=== PATIENT | male | born 1960 | race Caucasian/White ===

== ENCOUNTER 2020-08-02 09:20 | Inpatient (IN) | payer SELFPAY ==
[2020-08-02 12:48] LABS: Absolute Lymphocytes (CBC) 3.9 K/uL (0.7-4.9); Basophils % 0.9 % (0-1.3); Hematocrit 53.3 % (39.6-49.0); MPV 9.6 fL (7.6-11.3); RBC Red Blood Cell Count 6.12 M/uL (4.33-5.43)
[2020-08-02 12:49] LABS: Protime INR 0.95
[2020-08-02 13:02] LABS: ALT/SGPT 19 U/L (12-78); AST/SGOT 10 U/L (15-37); Albumin 3.7 g/dL (3.4-5.0); Alkaline Phosphatase 67 U/L (45-117); BUN Blood Urea Nitrogen 13 mg/dL (7-18); Bicarbonate 28 mmol/L (21-32); Bilirubin Direct 0.1 mg/dL (0-0.2); Bilirubin Total 0.7 mg/dL (0.2-1.0); Glucose Level 102 mg/dL (74-106); Lipase 92 U/L (73-393); Magnesium 2.6 mg/dL (1.8-2.4); NT PRO-BNP 80 pg/mL (<125); Potassium 4.2 mmol/L (3.5-5.1); Protein, Total 7.5 g/dL (6.4-8.2); Sodium Level 140 mmol/L (136-145); Troponin (Emerg Dept Use Only) < 0.02 ng/mL (0.0-0.045)
[2020-08-02] MEDS ORDERED: NA CHLORIDE 0.9% 1,000 ML ONE ×2 (13:02→15:47)
[2020-08-02] MEDS ORDERED: FAMOTIDINE 20 MG/2 ML VIAL IV ONE (13:02)
[2020-08-02 13:13] LABS: Urine Blood NEGATIVE (NEG); Urine Glucose NEGATIVE (NEG); Urine Protein 2+ (NEG); Urine Specific Gravity >1.030 (1.005-1.030)
--- NOTE | 2020-08-02 13:33 | RAD REPORT ---
EXAM DESCRIPTION: RAD - Chest Single View - 08/02/2020 1:08 pm CLINICAL HISTORY: COUGH COMPARISON: None TECHNIQUE: AP portable chest image was obtained 08/02/2020 1:08 pm . FINDINGS: Lungs are clear. Heart and vasculature are normal. Trachea is midline. No foreign body andre ntified. No measurable pleural effusion and no pneumothorax. No acute bony abnormality seen. No acute aortic findings suspected. IMPRESSION: No acute cardiopulmonary process.
[2020-08-02] MEDS ORDERED: ONDANSETRON 4 MG/2 ML VIAL ONE (13:43)
[2020-08-02] MEDS ORDERED: MORPHINE 4 MG/ML SYR ONE ×2 (13:43→17:11)
--- NOTE | 2020-08-02 13:58 | RAD REPORT ---
EXAM DESCRIPTION: CT - Abdomen Pelvis W Contrast - 08/02/2020 1:39 pm CLINICAL HISTORY: Abdominal pain COMPARISON: none. TECHNIQUE: Computed axial tomography of the abdomen pelvis was obtained. 100 cc Isovue-300 was admin istered intravenously. Oral contrast was not requested which limits evaluation of bowel. All CT scans are performed using dose optimization technique as appropriate and may include automated exposure control or mA/KV adjustment according to patient size. FINDINGS: The liver, spleen, pancreas, adrenal and kidneys appear unremarkable. There is no evidence of diverticulitis. The wall of the distal stomach appears thickened. Several loops of jejunum are mildly dilated with thickened wall. Small amount of ascites. The ileum i s normal caliber. No free air. The wall of bladder appears thickened. Small bilateral inguinal hernias. Tiny umbilical hernia IMPRESSION: Wall of the distal esophagus appears thickened. This could be secondary to pathology suc h as inflammation, mass or incomplete distention Mild dilatation of several jejunal loops with thickened wall may indicate inflammation. An associated partial small bowel obstruction although possible is considered less likely and can be monitored on subsequent imaging. Small amount of ascites Thickened bladder wall may indicate inflammation
[2020-08-02] MEDS ORDERED: PANTOPRAZOLE 40 MG INJ ONE (15:47)
[2020-08-02] MEDS ORDERED: PIPER/TAZO/NS 3.375gm 3.375 GM/100 ML BAG ONE (15:48)
--- NOTE | 2020-08-02 15:48 | EDPHYS ---
Physician Documentation [facility] Name: Sathish Klein Age: 60 yrs Sex: Male : 1960 Arrival Date: 08/02/2020 Time: 09:24 Bed 25 Private MD: David Perdomo HPI: 08/02 15:11 This 60 yrs old Male presents to ER via Ambulatory with complaints of vira Abdominal Pain, Difficulty Swallowing. 15:11 The patient presents with dysphagia, of solids, of liquids, of both solids and liquids. vira The patient describes throat pain as intermittent. Onset: The symptoms/episode began/occurred 4 week(s) ago. Severity of symptoms: At their worst the symptoms were mild, moderate. Historical: - Allergies: :58 No Known Allergies; ss - Home Meds: :58 None [Active]; ss - PMHx: :58 None; ss - PSHx: :58 None; ss - Immunization history:: Adult Immunizations unknown. - Social history:: Smoking status: Patient denies any tobacco usage or history of. ROS: 15:14 Constitutional: Negative for fever, chills, and weight loss, Eyes: Negative for injury, vira pain, redness, and discharge, ENT: Negative for injury, pain, and discharge, Neck: Negative for injury, pain, and swelling, Cardiovascular: Negative for chest pain, palpitations, and edema. 15:31 Respiratory: Negative for shortness of breath, cough, wheezing, and pleuritic chest vira pain, MS/Extremity: Negative for injury and deformity, Skin: Negative for injury, rash, and discoloration, Neuro: Negative for headache, weakness, numbness, tingling, and seizure, Psych: Negative for depression, anxiety, suicide ideation, homicidal ideation, and hallucinations, Allergy/Immunology: Negative for hives, rash, and allergies, Endocrine: Negative for neck swelling, polydipsia, polyuria, polyphagia, and marked weight changes, Hematologic/Lymphatic: Negative for swollen nodes, abnormal bleeding, and unusual bruising. 15:31 Abdomen/GI: Positive for abdominal pain, nausea, diarrhea, abdominal cramps, abdominal distension, of the right upper quadrant, left upper quadrant, right lower quadrant and left lower quadrant. 15:31 : Positive for urinary symptoms, pelvic pain, difficulty urinating, of the suprapubic area. Exam: 15:31 Constitutional: This is a well developed, well nourished patient who is awake, alert, vira and in no acute distress. Head/Face: Normocephalic, atraumatic. Eyes: Pupils equal round and reactive to light, extra-ocular motions intact. Lids and lashes normal. Conjunctiva and sclera are non-icteric and not injected. Cornea within normal limits. Periorbital areas with no swelling, redness, or edema. ENT: Nares patent. No nasal discharge, no septal abnormalities noted. Tympanic membranes are normal and external auditory canals are clear. Oropharynx with no redness, swelling, or masses, exudates, or evidence of obstruction, uvula midline. Mucous membranes moist. Neck: Trachea midline, no thyromegaly or masses palpated, and no cervical lymphadenopathy. Supple, full range of motion without nuchal rigidity, or vertebral point tenderness. No Meningismus. Chest/axilla: Normal chest wall appearance and motion. Nontender with no deformity. No lesions are appreciated. Cardiovascular: Regular rate and rhythm with a normal S1 and S2. No gallops, murmurs, or rubs. Normal PMI, no JVD. No pulse deficits. Respiratory: Lungs have equal breath sounds bilaterally, clear to auscultation and percussion. No rales, rhonchi or wheezes noted. No increased work of breathing, no retractions or nasal flaring. Back: No spinal tenderness. No costovertebral tenderness. Full range of motion. Male : Normal genitalia with no discharge or lesions. Skin: Warm, dry with normal turgor. Normal color with no rashes, no lesions, and no evidence of cellulitis. MS/ Extremity: Pulses equal, no cyanosis. Neurovascular intact. Full, normal range of motion. Neuro: Awake and alert, GCS 15, oriented to person, place, time, and situation. Cranial nerves II-XII grossly intact. Motor strength 5/5 in all extremities. Sensory grossly intact. Cerebellar exam normal. Normal gait. Psych: Awake, alert, with orientation to person, place and time. Behavior, mood, and affect are within normal limits. 15:31 Abdomen/GI: Inspection: distension, Bowel sounds: hyperactive, Palpation: mild abdominal tenderness, in all quadrants, Liver: no appreciated palpable abnormalities, Hernia: not appreciated. 15:31 Musculoskeletal/extremity: DVT Exam: No signs of deep vein thrombosis. no pain, no swelling, no tenderness, negative Homans' sign noted on exam, no appreciated bluish discoloration, no erythema, no increased warmth. Vital Signs: 09:56 BP 134 / 85; Pulse 60; Resp 16; Temp 98.4(TE); Pulse Ox 98% on R/A; Weight 83.91 kg; ss Height 5 ft. 10 in. (177.80 cm); Pain 9/10; 12:10 BP 151 / 91; Pulse 62; Resp 18; Pulse Ox 98% on R/A; vg1 13:00 BP 119 / 83; Pulse 60; Resp 14; Pulse Ox 98% on R/A; vg1 14:00 BP 128 / 84; Pulse 57; Resp 16; Pulse Ox 97% on R/A; vg1 15:00 BP 169 / 90; Pulse 60; Resp 22; Pulse Ox 98% on R/A; vg1 16:00 BP 153 / 86; Pulse 55; Resp 18; Pulse Ox 99% on R/A; vg1 17:00 BP 147 / 87; Pulse 57; Resp 18; Pulse Ox 100% on R/A; vg1 09:56 Body Mass Index 26.54 (83.91 kg, 177.80 cm) ss MDM: 11:45 Patient medically screened. vira 15:43 Differential diagnosis: gastroesophageal reflux disease, bowel obstruction, vira cholecystitis, Cholelithiasis, gastritis, GI Bleed, Irritable bowel syndrome, non-specific abd pain, pancreatitis, Peritonitis, Prostatitis, urinary tract infection. Data reviewed: vital signs, nurses notes, lab test result(s), EKG, radiologic studies, CT scan, plain films. Data interpreted: brand protection manager: rate is 60 beats/min, rhythm is regular, Pulse oximetry: on room air is 98 %. Test interpretation: by ED physician or midlevel provider: ECG, plain radiologic studies. Counseling: I had a detailed discussion with the patient and/or guardian regarding: the historical points, exam findings, and any diagnostic results supporting the discharge/admit diagnosis, the presence of at least one elevated blood pressure reading (>120/80) during this emergency department visit, lab results, radiology results, the need for further work-up and treatment in [facility]. 08/02 12:31 Order name: Basic Metabolic Panel [facility] 08/02 12:31 Order name: CBC with Diff [facility] 08/02 12:31 Order name: LFT's [facility] 08/02 12:31 Order name: Magnesium; Complete Time: 13:25 [facility] 08/02 12:31 Order name: NT PRO-BNP; Complete Time: 13:25 [facility] 08/02 12:31 Order name: PT-INR; Complete Time: 13:25 [facility] 08/02 12:31 Order name: Troponin (emerg Dept Use Only); Complete Time: 13:25 [facility] 08/02 12:32 Order name: Lipase; Complete Time: 13:25 [facility] 08/02 12:32 Order name: Urine Culture [facility] 08/02 12:32 Order name: Basic Metabolic Panel; Complete Time: 13:25 [facility] 08/02 12:32 Order name: CBC with Automated Diff; Complete Time: 13:25 [facility] 08/02 12:32 Order name: Liver (Hepatic) Function; Complete Time: 13:25 [facility] 08/02 13:11 Order name: Urine Dipstick--Ancillary (enter results) 08/02 13:12 Order name: Urine Dipstick-Ancillary; Complete Time: 13:25 [facility] 08/02 12:31 Order name: XRAY Chest (1 view); Complete Time: 14:50 [facility] 08/02 12:32 Order name: CT Abd/Pelvis - IV Contrast Only; Complete Time: 14:50 [facility] 08/02 16:09 Order name: Comprehensive Metabolic Panel [facility] 08/02 16:09 Order name: CBC with Automated Diff [facility] 08/02 16:09 Order name: CBC with Automated Diff [facility] 08/02 16:09 Order name: Comprehensive Metabolic Panel [facility] 08/02 16:10 Order name: Protime (+INR) [facility] 08/02 16:10 Order name: Protime (+INR) [facility] 08/02 16:10 Order name: PTT, Activated Partial Thromb [facility] 08/02 16:10 Order name: PTT, Activated Partial Thromb [facility] 08/03 03:34 Order name: SARS-COV-2 RT PCR [facility] 08/02 12:31 Order name: EKG; Complete Time: 12:33 [facility] 08/02 12:31 Order name: Cardiac monitoring; Complete Time: 12:37 [facility] 08/02 12:32 Order name: EKG - Nurse/Tech; Complete Time: 12:59 [facility] 08/02 12:32 Order name: IV Saline Lock; Complete Time: 12:37 [facility] 08/02 12:32 Order name: Labs collected and sent; Complete Time: 12:37 [facility] 08/02 12:32 Order name: O2 Per Protocol; Complete Time: 12:43 [facility] 08/02 12:32 Order name: O2 Sat Monitoring; Complete Time: 12:43 [facility] 08/02 12:32 Order name: Urine Dipstick-Ancillary (obtain specimen); Complete Time: 13:05 [facility] 08/02 16:09 Order name: CONS Pharmacy Consult [facility] 08/02 16:09 Order name: CONS Physician Consult [facility] 08/02 16:09 Order name: NPO [facility] 08/02 16:11 Order name: CONS Physician Consult [facility] Administered Medications: Discontinued: NS 0.9% 1000 ml IV at 125 ml/hr continuous 12:52 Drug: Pepcid 20 mg Route: IVP; Site: left antecubital; vg1 13:37 Follow up: Response: No adverse reaction vg1 12:52 Drug: NS 0.9% 1000 ml Route: IV; Rate: 125 ml/hr; Site: left antecubital; vg1 13:30 Drug: morphine 4 mg {Note: rass1.} Route: IVP; Site: left antecubital; vg1 14:00 Follow up: Response: No adverse reaction; Pain is decreased vg1 13:30 Drug: Zofran (Ondansetron) 4 mg Route: IVP; Site: left antecubital; vg1 15:18 Follow up: Response: No adverse reaction vg1 16:01 Drug: NS 0.9% 1000 ml Route: IV; Rate: 1 bolus; Site: left antecubital; vg1 17:11 Follow up: IV Status: Completed infusion; IV Intake: 1000ml vg1 16:02 Drug: ProTONIX 40 mg Route: IVP; Site: left antecubital; vg1 17:11 Follow up: Response: No adverse reaction vg1 16:02 Drug: Zosyn 3.375 grams Route: IVPB; Infused Over: 60 mins; Site: left antecubital; vg1 17:10 Follow up: IV Status: Completed infusion vg1 17:10 Drug: morphine 4 mg {Note: rass1.} Route: IVP; Site: left antecubital; vg1 17:10 Drug: Zofran (Ondansetron) 4 mg Route: IVP; Site: left antecubital; vg1 17:13 Drug: Thiamine 100 mg Route: IV; Rate: bolus; Site: left antecubital; vg1 17:13 Drug: Banana Bag - (NS 0.9% 1000 ml, foLIC Acid 1 mg, Thiamine 100 mg, Multivitamin 1 vg1 amp) Route: IV; Rate: 125 ml/hr; Site: left antecubital; Disposition: 08/02/20 15:47 Hospitalization ordered by Bro Torres for Inpatient Admission. Preliminary diagnosis are Alcohol abuse, Major depressive disorder, recurrent - recent sons , accidental, Esophagitis, Ascites, Other intestinal obstruction - partial small bowel, Cystitis. - Bed requested for [facility] ER HOLD. - Status is Inpatient Admission. iw - Condition is Fair. - Problem is new. - Symptoms have improved. Signatures: Dispatcher [employer] EDMS Natasha Huerta Corey, MD MD cha Williams, Irene, RN RN iw Smirch, Shelby, RN RN ss Garcia, Victoria, RN RN vg1 Corrections: (The following items were deleted from the chart) 15:23 15:10 Bladder Irrigation ordered. [facility] 18:34 15:47 Hospitalization Ordered by Bro Torres MD for Inpatient Admission. Preliminary bd diagnosis is Alcohol abuse; Major depressive disorder, recurrent - recent sons , accidental; Esophagitis; Ascites; Other intestinal obstruction - partial small bowel; Cystitis. Bed requested for Telemetry/MedSurg (Inpatient). Status is Inpatient Admission. Condition is Fair. Problem is new. Symptoms have improved. [facility] 08/03 12:47 08/02 18:34 08/02/2020 15:47 Hospitalization Ordered by Bro Torres MD for Inpatient iw Admission. Preliminary diagnosis is Alcohol abuse; Major depressive disorder, recurrent - recent sons , accidental; Esophagitis; Ascites; Other intestinal obstruction - partial small bowel; Cystitis. Bed requested for [facility] ER HOLD. Status is Inpatient Admission. Condition is Fair. Problem is new. Symptoms have improved. bd
--- NOTE | 2020-08-02 15:48 | ER ---
Nurse's Notes [facility] Name: Sathish Klein Age: 60 yrs Sex: Male : 1960 Arrival Date: 08/02/2020 Time: 09:24 Bed 25 Private MD: Diagnosis: Alcohol abuse;Major depressive disorder, recurrent-recent sons , accidental;Esophagitis;Ascites;Other intestinal obstruction-partial small bowel;Cystitis Presentation: 08/02 09:56 Chief complaint: Patient states: "I've been having a hard time swallowing, especially ss during meals." Pt also c/o stabbing abd pain. Coronavirus screen: Client denies travel out of the [place] in the last 14 days. Ebola Screen: Patient denies exposure to infectious person. Patient denies travel to an Ebola-affected area in the 21 days before illness onset. Initial Sepsis Screen: Does the patient meet any 2 criteria? No. Patient's initial sepsis screen is negative. Does the patient have a suspected source of infection? No. Patient's initial sepsis screen is negative. Risk Assessment: Do you want to hurt yourself or someone else? Patient reports no desire to harm self or others. Onset of symptoms was July 30, 2020. 09:56 Method Of Arrival: Ambulatory ss 09:56 Acuity: CARLOS A 3 ss Historical: - Allergies: 09:58 No Known Allergies; ss - Home Meds: 09:58 None [Active]; ss - PMHx: 09:58 None; ss - PSHx: 09:58 None; ss - Immunization history:: Adult Immunizations unknown. - Social history:: Smoking status: Patient denies any tobacco usage or history of. Screenin:10 Abuse screen: Denies threats or abuse. Nutritional screening: No deficits noted. vg1 Tuberculosis screening: No symptoms or risk factors identified. Fall Risk No fall in past 12 months (0 pts). No secondary diagnosis (0 pts). IV access (20 points). Ambulatory Aid- None/Bed Rest/Nurse Assist (0 pts). Gait- Normal/Bed Rest/Wheelchair (0 pts) Mental Status- Oriented to own ability (0 pts). Total Mckenna Fall Scale indicates No Risk (0-24 pts). Assessment: 12:05 General: Appears in no apparent distress. comfortable, Behavior is calm, cooperative. vg1 Pain: Complains of pain in ABD Pain currently is 9 out of 10 on a pain scale. Pain began about 4 days ago. Neuro: Level of Consciousness is awake, alert, obeys commands, Oriented to person, place, time, situation. Cardiovascular: Patient's skin is warm and dry. Respiratory: Airway is patent Respiratory effort is even, unlabored. GI: Bowel sounds present X 4 quads. Abd is soft and non tender X 4 quads. Reports bloating, diarrhea, flatulence, gaseousness, Patient currently denies nausea, vomiting. : No signs and/or symptoms were reported regarding the genitourinary system. EENT: Reports difficulty swallowing for years; it comes and goes. Derm: Skin is intact, is healthy with good turgor. Musculoskeletal: Circulation, motion, and sensation intact. 13:11 Reassessment: Patient appears in no apparent distress at this time. No changes from vg1 previously documented assessment. Patient and/or family updated on plan of care and expected duration. Pain level reassessed. Patient is alert, oriented x 3, equal unlabored respirations, skin warm/dry/pink. 13:23 Reassessment: Patient states ABD pain is getting worse. States pain is in the vg1 Epigastric area and radiates to groin; patient is grimacing, moaning and guarding ABD. Provider notifed. 15:06 Reassessment: Patient appears in no apparent distress at this time. Patient and/or vg1 family updated on plan of care and expected duration. Pain level reassessed. Patient is alert, oriented x 3, equal unlabored respirations, skin warm/dry/pink. But states can feel the pain coming back, but is ok for now. Patient states feeling better. 16:55 Reassessment: Patient and/or family updated on plan of care and expected duration. Pain vg1 level reassessed. Patient is alert, oriented x 3, equal unlabored respirations, skin warm/dry/pink. Patient stated pain 10/10. Provider notified. Vital Signs: 09:56 BP 134 / 85; Pulse 60; Resp 16; Temp 98.4(TE); Pulse Ox 98% on R/A; Weight 83.91 kg; ss Height 5 ft. 10 in. (177.80 cm); Pain 9/10; 12:10 BP 151 / 91; Pulse 62; Resp 18; Pulse Ox 98% on R/A; vg1 13:00 BP 119 / 83; Pulse 60; Resp 14; Pulse Ox 98% on R/A; vg1 14:00 BP 128 / 84; Pulse 57; Resp 16; Pulse Ox 97% on R/A; vg1 15:00 BP 169 / 90; Pulse 60; Resp 22; Pulse Ox 98% on R/A; vg1 16:00 BP 153 / 86; Pulse 55; Resp 18; Pulse Ox 99% on R/A; vg1 17:00 BP 147 / 87; Pulse 57; Resp 18; Pulse Ox 100% on R/A; vg1 09:56 Body Mass Index 26.54 (83.91 kg, 177.80 cm) ED Course: 09:24 Patient arrived in ED. ds1 09:57 Triage completed. 09:58 Arm band placed on right wrist. 11:45 David Pantoja MD is Attending Physician. [facility] 11:50 Inserted saline lock: 20 gauge in left antecubital area, using aseptic technique. Blood dh3 collected. 12:01 Joelle Dent, RN is Primary Nurse. vg1 12:10 Patient has correct armband on for positive identification. Bed in low position. Call vg1 light in reach. 13:08 XRAY Chest (1 view) In Process Unspecified. EDMS 13:[address] via stretcher. vg1 13:38 CT completed. Patient tolerated procedure well. Patient moved back from CT. 13:39 CT Abd/Pelvis - IV Contrast Only In Process Unspecified. EDMS 15:44 Bro Torres MD is Hospitalizing Provider. [facility] 23:53 Primary Nurse role handed off by Joelle Dent, JUN 23:53 Bryan Smith, RN is Primary Nurse. 08/03 12:47 Lin Jiang, RN is Primary Nurse. iw Administered Medications: Discontinued: NS 0.9% 1000 ml IV at 125 ml/hr continuous 08/02 12:52 Drug: Pepcid 20 mg Route: IVP; Site: left antecubital; vg1 13:37 Follow up: Response: No adverse reaction vg1 12:52 Drug: NS 0.9% 1000 ml Route: IV; Rate: 125 ml/hr; Site: left antecubital; vg1 13:30 Drug: morphine 4 mg {Note: rass1.} Route: IVP; Site: left antecubital; vg1 14:00 Follow up: Response: No adverse reaction; Pain is decreased vg1 13:30 Drug: Zofran (Ondansetron) 4 mg Route: IVP; Site: left antecubital; vg1 15:18 Follow up: Response: No adverse reaction vg1 16:01 Drug: NS 0.9% 1000 ml Route: IV; Rate: 1 bolus; Site: left antecubital; vg1 17:11 Follow up: IV Status: Completed infusion; IV Intake: 1000ml vg1 16:02 Drug: ProTONIX 40 mg Route: IVP; Site: left antecubital; vg1 17:11 Follow up: Response: No adverse reaction vg1 16:02 Drug: Zosyn 3.375 grams Route: IVPB; Infused Over: 60 mins; Site: left antecubital; vg1 17:10 Follow up: IV Status: Completed infusion vg1 17:10 Drug: morphine 4 mg {Note: rass1.} Route: IVP; Site: left antecubital; vg1 17:10 Drug: Zofran (Ondansetron) 4 mg Route: IVP; Site: left antecubital; vg1 17:13 Drug: Thiamine 100 mg Route: IV; Rate: bolus; Site: left antecubital; vg1 17:13 Drug: Banana Bag - (NS 0.9% 1000 ml, foLIC Acid 1 mg, Thiamine 100 mg, Multivitamin 1 vg1 amp) Route: IV; Rate: 125 ml/hr; Site: left antecubital; Intake: 17:11 IV: 1000ml; Total: 1000ml. vg1 Outcome: 15:47 Decision to Hospitalize by Provider. [facility] 08/03 12:47 Patient left the ED. iw Signatures: Dispatcher [employer] EDMS Bryan Smith RN RN sg Anderson, Corey, MD MD cha Sanford, Demi ds1 Lin Jiang RN RN iw Smirch, Shelby, RN RN ss Warren, Shannon sw Herrera, Deanna 3 Joelle Dent RN RN vg1 Corrections: (The following items were deleted from the chart) 08/02 13:18 13:11 Reassessment: Patient appears in no apparent distress at this time. Patient vg1 and/or family updated on plan of care and expected duration. Pain level reassessed. Patient is alert, oriented x 3, equal unlabored respirations, skin warm/dry/pink. vg1 13:32 13:23 Reassessment: Patient states ABD pain is getting worse. States pain is in the vg1 Epigastric area and radiates to groin. Provider notifed vg1
[2020-08-02] MEDS ORDERED: FOLIC ACID 1 MG, MULTIVITAMINS INJ 10 ML in NA CHLORIDE 0.9% 1,000 ML IV ONE (16:00)
[2020-08-02] MEDS ORDERED: ACETAMINOPHEN 500 MG TAB PO PRN (16:07)
[2020-08-02] MEDS ORDERED: MORPHINE 2 MG/ML SYR IV PRN (16:07)
[2020-08-02] MEDS ORDERED: ONDANSETRON 4 MG/2 ML VIAL IV PRN (16:07)
[2020-08-02] MEDS: NA CHLORIDE 0.9% 1,000 ML IV SCH (17:00)
[2020-08-02] MEDS ORDERED: THIAMINE 200 MG/2 ML INJ ONE (17:00)
[2020-08-02 20:12] VITALS: BMI 26.5
[2020-08-02] MEDS: chlordiazePOXIDE HCl 25 MG CAP PO SCH (20:30)
[2020-08-02] MEDS ORDERED: chlordiazePOXIDE HCl 25 MG CAP ONE (20:46)
[2020-08-03] MEDS ORDERED: PIPER/TAZO/NS 3.375gm 3.375 GM/100 ML BAG IVPB SCH
[2020-08-03] MEDS: NA CHLORIDE 0.9% 1,000 ML IV SCH (03:00)
[2020-08-03] MEDS: chlordiazePOXIDE HCl 25 MG CAP PO SCH (04:26)
[2020-08-03] MEDS ORDERED: PIPER/TAZO/NS 3.375gm 3.375 GM/100 ML BAG ONE (05:08)
[2020-08-03] MEDS ORDERED: NA CHLORIDE 0.9% 1,000 ML ONE (05:08)
[2020-08-03] MEDS ORDERED: chlordiazePOXIDE HCl 25 MG CAP ONE ×2 (05:08→08:28)
[2020-08-03 05:46] LABS: Albumin 3.1 g/dL (3.4-5.0); Bilirubin Total 0.8 mg/dL (0.2-1.0); Protein, Total 6.4 g/dL (6.4-8.2)
[2020-08-03 05:51] LABS: Hematocrit 46.4 % (39.6-49.0); RBC Red Blood Cell Count 5.32 M/uL (4.33-5.43)
[2020-08-03 05:52] LABS: Absolute Lymphocytes (CBC) 3.2 K/uL (0.7-4.9); Basophils % 0.5 % (0-1.3); Lymphocytes % 26.1 % (15.3-44.8)
[2020-08-03 06:18] LABS: Protime INR 0.97
--- NOTE | 2020-08-03 06:29 | EKG ---
Test Date: 2020-08-02 Test Time: 12:56:42 Sales Teacher: JEFFERSON MEASUREMENT RESULTS: Intervals: Rate: 52 TX: 142 QRSD: 78 QT: 416 QTc: 386 [place]: P: 53 TX: 142 QRS: 67 T: 61 INTERPRETIVE STATEMENTS: Sinus bradycardia Junctional ST depression, probably normal Borderline ECG Compared to ECG 12/29/2009 19:14:20 ST (T wave) deviation now present Sinus rhythm no longer present Electronically Signed On 08-03-20 06:27:12 BLOCK[employer] SKIVER by Leon Arrington
[2020-08-03 08:51] VITALS: BP 126/89; TEMP 98.4
[2020-08-03] MEDS ORDERED: PNEUMOCOCCAL VACCINE 0.5 ML IMVAC ONE (09:00)
[2020-08-03] MEDS ORDERED: INFLUENZA VACCINE (for 3y+) 0.5 ML DOSE IMVAC ONE (09:00)
--- NOTE | 2020-08-03 10:38 | CON ---
Date of Consultation: 08/03/2020 History Of Present Illness: This is the case of a 60-year-old patient, comes to the hospital with ga stritis, esophagitis, duodenitis. He has pain for the last 5 days. He remembers having esophagitis in the past and thickening in the area diagnose and he slowed down on his drinking, but a few months ago, his son in an accident and he says that his drinking habit is getting a lot worse. He has some pain on and off. He has been dealing with this for few months, but in the last 6 days, it got w orse. In the last 6 days, he say 6 days ago he has a large amount of alcohol consumption. He unders tand that he should not do it, but he has been through a lot of stress and he just could not control it and then few days later, he developed this and that is why he is here right now. Also, a few week s ago, he was employed at work and then once again, he used a lot of alcohol consumption plus the t was not the greatest. He has seen a GI doctor before, although they advised in the past so what to do, he says that in the last few weeks, his situation has changed emotionally and it is taking a tur n for the worse. He denies any emesis, any hematochezia, melena, any recent traveling out of the formerly [facility]. He does not remember his last colonoscopy. Past Medical History: Include esophagitis. Medications: None. Allergies: NONE. Surgeries: None. Social History: Drinking, see above. He does not smoke. Review of Systems: Ten points otherwise unremarkable other than the abdominal pain, some nausea and abdominal distention on and off. He has history of also dysuria in the past. He was diagnosed with UTI. Physical Examination: General: The patient is awake, alert. HEENT: Pupils are equal and reactive, anicteric. Neck: Supple. Chest: Clear. Abdomen: Softly distended. No guarding or rebound. No peritoneal signs. Mild generalized tenderne ss. Extremities: Good capillary refill. Rectal: Deferred. Diagnostic Data: CAT scan of the abdomen and pelvis interpreted by Dr. Rea as urinary bladder t hickening; small bilateral inguinal hernias; umbilical hernia; several loops of jejunum, mildly thick ened; distal stomach thickened and distal esophagus thickened. That is per Dr. Rea. Blood work shows WBC count of 12, hemoglobin of 15.5. INR is 0.97. Alkaline phosphate 57. Assessment: A 60-year-old patient with esophagitis, gastritis, duodenitis, cystitis. He admitted in the last 5 days, he has an alcohol binge problem for some personal reasons. At least from a surgica l standpoint, right now, we did not see any perforation, but we counseled him the importance of looki ng help for his alcohol cessation since this thickening if does not cause any perforation or ulcers o r bleeding may still cause some chronic changes, chronic problems that may include even cancer from i rritation. He needs a brain wave technician to diagnose his properly and trying to find the specific ca use of this inflammation. From the surgical standpoint, we going to keep observation on the patient and we will follow the patient with you and give more recommendations as the case develops. ALEXA/SWAPNIL Voice ID: [id number] Report ID: [id number]
[2020-08-03 13:26] VITALS: O2SAT 100
--- NOTE | 2020-08-09 23:33 | P.HP ---
Certification for Inpatient Patient admitted to: Inpatient With expected LOS: >2 Midnights Patient will require the following post-hospital care: None Practitioner: I am a practitioner with admitting privileges, knowledge of patient current condition, hospital course, and medical plan of care. Services: Services provided to patient in accordance with Admission requirements found in Title 42 Section 412.3 of the Code of Federal Regulations Patient History Date of Service: 08/02/20 Reason for admission: Abdominal pain History of Present Illness: Patient is a 60-year-old gentleman who came into the hospital with abdominal discomfort. Patient has been drinking heavily. It was felt that patient may have pancreatitis. Patient had imaging studies performed which revealed Esophagitis, possible gastritis, and duodenitis. Patient's lipase is within normal limits. At this time, patient will be admitted to the hospital for further evaluation. Allergies No Known Allergies Allergy (Unverified 08/02/20 17:24) Home Medications: Cefdinir [Omnicef] 300 mg PO BID #14 capsule 08/03/20 Pantoprazole [Protonix Tab] 40 mg PO DAILY #30 tab 08/03/20 Sucralfate [Carafate -Tab] 1 gm PO ACHS #120 tab 08/03/20 - Past Medical/Surgical History Past Medical History: Patient denies medical history Past Surgical History: Patient denies surgical history - Family History Father Family History: Reviewed- Non-Contributory - Social History Smoking Status: Never smoker Alcohol use: Yes CD- Drugs: No Caffeine use: No Place of Residence: Home Review of Systems 10-point ROS is otherwise unremarkable Physical Examination - Vital Signs Temperature: 98.4 F Blood Pressure: 126/89 Pulse: 59 Respirations: 16 Pulse Ox (%): 97 - Physical Exam General: Alert, In no apparent distress, Oriented x3 HEENT: Atraumatic, PERRLA, Mucous membr. moist/pink, EOMI, Sclerae nonicteric Neck: Supple, 2+ carotid pulse no bruit, No LAD, Without JVD or thyroid abnormality Respiratory: Clear to auscultation bilaterally, Normal air movement Cardiovascular: Regular rate/rhythm, Normal S1 S2 Gastrointestinal: Normal bowel sounds, Soft and benign, Non-distended, Tenderness (Mild epigastric tenderness ) Musculoskeletal: No clubbing, No swelling, No tenderness Integumentary: No rashes Neurological: Normal gait, Normal speech, Normal strength at 5/5 x4 extr, Normal tone, Normal affect Lymphatics: No axilla or inguinal lymphadenopathy Assessment & Plan - Problems (Diagnosis) (1) Abdominal pain Status: Acute (2) Epigastric abdominal tenderness Status: Acute (3) Gastritis and duodenitis Status: Acute (4) Esophagitis Status: Acute (5) Alcohol abuse Status: Acute - Plan Plan: - Continue with IV hydration and PPI - Continue with IV antibiotics - Continue with pain control - NPO - GI and DVT prophylaxis Discharge Plan: Home Plan to discharge in: 24 Hours - Advance Directives Does patient have a Living Will: No Does patient have a Durable POA for Healthcare: No - Code Status/Comfort Care Code Status Assessed: Yes Code Status: Full Code Critical Care: No Time Spent Managing PTS Care (In Minutes): 45
--- NOTE | 2020-08-09 23:39 | P.DS ---
Discharge Date: 08/03/20 Disposition: ROUTINE DISCHARGE Discharge Condition: GOOD Reason for Admission: Abdominal pain - Problems (1) Abdominal pain Status: Acute (2) Epigastric abdominal tenderness Status: Acute (3) Gastritis and duodenitis Status: Acute (4) Esophagitis Status: Acute (5) Alcohol abuse Status: Acute Brief History of Present Illness: Patient is a 60-year-old gentleman who came into the hospital with abdominal discomfort. Patient has been drinking heavily. It was felt that patient may have pancreatitis. Patient had imaging studies performed which revealed Esophagitis, possible gastritis, and duodenitis. Patient's lipase is within normal limits. At this time, patient will be admitted to the hospital for further evaluation. Hospital Course: Patient is doing well today. We will continue with Protonix at discharge. Continue with antibiotic therapy. At this time, patient is stable for discharge home. Vital Signs/Physical Exam: Temp Pulse Resp BP Pulse Ox 98.4 F 59 16 126/89 97 08/09/20 23:35 08/09/20 23:35 08/09/20 23:35 08/09/20 23:35 08/09/20 23:35 General: Alert, In no apparent distress, Oriented x3 Laboratory Data at Discharge: WBC 12.20 K/uL (4.3-10.9) H D 08/03/20 05:00 Hgb 15.5 g/dL (13.6-17.9) 08/03/20 05:00 Hct 46.4 % (39.6-49.0) 08/03/20 05:00 Plt Count 274 K/uL (152-406) 08/03/20 05:00 PT 11.4 SECONDS (9.5-12.5) 08/03/20 05:00 INR 0.97 08/03/20 05:00 APTT 27.7 SECONDS (24.3-36.9) 08/03/20 05:00 Sodium 140 mmol/L (136-145) 08/03/20 05:00 Potassium 4.0 mmol/L (3.5-5.1) 08/03/20 05:00 BUN 9 mg/dL (7-18) 08/03/20 05:00 Creatinine 0.91 mg/dL (0.55-1.3) 08/03/20 05:00 Glucose 89 mg/dL (74-106) 08/03/20 05:00 Magnesium 2.6 mg/dL (1.8-2.4) H 08/02/20 11:50 Total Bilirubin 0.8 mg/dL (0.2-1.0) 08/03/20 05:00 AST 12 U/L (15-37) L 08/03/20 05:00 ALT 16 U/L (12-78) 08/03/20 05:00 Alkaline Phosphatase 57 U/L (45-117) 08/03/20 05:00 Lipase 92 U/L (73-393) 08/02/20 11:50 Home Medications: Cefdinir [Omnicef] 300 mg PO BID #14 capsule 08/03/20 Pantoprazole [Protonix Tab] 40 mg PO DAILY #30 tab 08/03/20 Sucralfate [Carafate -Tab] 1 gm PO ACHS #120 tab 08/03/20 New Medications: Sucralfate [Carafate -Tab] 1 gm PO ACHS #120 tab Cefdinir [Omnicef] 300 mg PO BID #14 capsule Pantoprazole [Protonix Tab] 40 mg PO DAILY #30 tab Physician Discharge Instructions: Diet:AHA Activity:Fall precautions PHYSICIAN'S DISCHARGE INSTRUCTIONS OK TO DC IV AND DC HOME FOLLOW-UP WITH PRIMARY CARE PROVIDER IN 1-2 WEEKS FOLLOW-UP WITH GI, DR. LOOMIS, IN 1-2 WEEKS, FOR DYSPHAGIA RETURN TO THE ER IF symptoms worsen CALL or TEXT DR. VOGT AT [phone] IF ANY QUESTIONS REGARDING HOSPITAL STAY PLEASE CALL THE FLOOR AT [phone] IF ANY MEDICATION OR NURSING QUESTIONS Diet: AHA Activity: Fall precautions Followup: NONE,NONE [Primary Care Provider] - Time spent managing pt's care (in minutes): 35
== END 2020-08-03 13:30 | disposition home or self-care (01) | DRG 392 ==
LOC: ER 09:20 → ERHOLD 16:07
PROVIDERS: ADMIT Hospitalist; ATTEND Hospitalist
DX: K20.90 Esophagitis, unspecified without bleeding (principal); K29.70 Gastritis, unspecified, without bleeding; K29.80 Duodenitis without bleeding; N30.90 Cystitis, unspecified without hematuria; Z20.822 Contact with and (suspected) exposure to COVID-19
CPT/HCPCS: 36415; 71045; 74177; 80048; 80053; 80076; 81003; 83690; 83735; 83880; 84484; 85025; 85610; 85730; 87086; 87088; 93005; 96365; 96375; 99284; C9113; J2405; J2543; J3411; J7030; Q9967; U0003

== ENCOUNTER 2024-04-30 02:42 | Emergency (ER) | payer SELFPAY ==
[2024-04-30] MEDS ORDERED: LIDOCAINE 1% 20 ML MDV ONE (03:04)
[2024-04-30] MEDS ORDERED: SMZ./TMP. 800/160 MG TABLET ONE (03:05)
[2024-04-30] MEDS ORDERED: IBUPROFEN 400 MG TAB ONE (03:05)
[2024-04-30] MEDS ORDERED: CEPHALEXIN 250 MG CAP ONE (03:05)
[2024-04-30] MEDS ORDERED: ONDANSETRON 4 MG (ODT) TAB ONE (03:06)
--- NOTE | 2024-04-30 05:08 | ER ---
Nurse's Notes [facility] Name: Sathish Klein Age: 64 yrs Sex: Male : 1960 Arrival Date: 04/30/2024 Time: 02:42 Bed 5 Private MD: Diagnosis: Right index finger paronychia Presentation: 04/30 02:56 Chief complaint: Patient states: I was working with metal on Saturday and I think I got a vc1 piece in my finger. Coronavirus screen: Client denies travel out of the [place] in the last 14 days. At this time, the client does not indicate any symptoms associated with coronavirus-19. Ebola Screen: Patient negative for fever greater than or equal to 101.5 degrees Fahrenheit, and additional compatible Ebola Virus Disease symptoms Patient denies exposure to infectious person. Patient denies travel to an Ebola-affected area in the 21 days before illness onset. No symptoms or risks identified at this time. Initial Sepsis Screen: Does the patient meet any 2 criteria? No. Patient's initial sepsis screen is negative. Does the patient have a suspected source of infection? No. Patient's initial sepsis screen is negative. Risk Assessment: Do you want to hurt yourself or someone else? Patient reports no desire to harm self or others. Onset of symptoms was April 27, 2024. 02:56 Method Of Arrival: Ambulatory vc1 02:56 Acuity: CARLOS A 4 vc1 Triage Assessment: 02:59 General: Appears in no apparent distress. comfortable, slender, well groomed, well vc1 developed, well nourished, Behavior is calm, cooperative, appropriate for age. Pain: Complains of pain in right index finger Pain does not radiate. Pain currently is 10 out of 10 on a pain scale. Quality of pain is described as throbbing, Pain began 2-3 days ago. Is continuous. EENT: No deficits noted. No signs and/or symptoms were reported regarding the EENT system. Neuro: Level of Consciousness is awake, alert, obeys commands, Oriented to person, place, time, situation, Appropriate for age. Cardiovascular: No deficits noted. Patient's skin is warm and dry. Respiratory: Airway is patent Respiratory effort is even, unlabored, Respiratory pattern is regular, symmetrical, Breath sounds are clear bilaterally. GI: No deficits noted. No signs and/or symptoms were reported involving the gastrointestinal system. : No deficits noted. No signs and/or symptoms were reported regarding the genitourinary system. Derm: Skin is intact, is healthy with good turgor, Skin is dry, Skin is normal, Wound noted right index finger. Musculoskeletal: Circulation, motion, and sensation intact. Range of motion: intact in all extremities, Swelling present in right index finger. Injury Description: possible foreign body. Historical: - Allergies: 02:58 No Known Allergies; vc1 - Home Meds: 02:58 None [Active]; vc1 - PMHx: 02:58 None; vc1 - PSHx: 02:58 None; vc1 - Immunization history:: Client reports receiving the 2nd dose of the Covid vaccine, Last tetanus immunization: < 5 years ago. - Infectious Disease History:: Denies. - Social history:: Smoking status: Patient denies any tobacco usage or history of. - Family history:: not pertinent. Screenin:58 [facility] ED Fall Risk Assessment (Adult) History of falling in the last 3 months, vc1 including since admission No falls in past 3 months (0 pts) Confusion or Disorientation No (0 pts) Intoxicated or Sedated No (0 pts) Impaired Gait No (0 pts) Mobility Assist Device Used No (0 pt) Altered Elimination No (0 pt) Score/Fall Risk Level 0 - 2 = Low Risk Oriented to surroundings, Maintained a safe environment, Educated pt \T\ family on fall prevention, incl call for assistance when getting out of bed. Abuse screen: Denies threats or abuse. Nutritional screening: No deficits noted. Tuberculosis screening: No symptoms or risk factors identified. Assessment: 03:00 General: Appears in no apparent distress. uncomfortable, Behavior is calm, cooperative. kj2 Pain: Complains of pain in right hand and right index finger Pain currently is 9 out of 10 on a pain scale. Neuro: Level of Consciousness is awake, alert. Cardiovascular: Patient's skin is warm and dry. Respiratory: Airway is patent Respiratory effort is even, unlabored. GI: No signs and/or symptoms were reported involving the gastrointestinal system. : No signs and/or symptoms were reported regarding the genitourinary system. 04:36 Reassessment: Patient appears in no apparent distress at this time. Patient and/or kj2 family updated on plan of care and expected duration. Pain level reassessed. Patient is alert, oriented x 3, equal unlabored respirations, skin warm/dry/pink. Vital Signs: 02:56 BP 158 / 68; Pulse 50; Resp 14; Temp 98.6; Pulse Ox 99% ; Weight 83.91 kg; Height 5 ft. vc1 11 in. ; Pain 10/10; 03:23 BP 151 / 82; Pulse 45; Resp 18; Pulse Ox 98% on R/A; kj2 04:36 BP 153 / 104; Pulse 50; Resp 18; Pulse Ox 97% on R/A; kj2 05:22 BP 165 / 86; Pulse 56; Resp 18; Temp 98; Pulse Ox 97% on R/A; kj2 02:56 Body Mass Index 25.80 (83.91 kg, 180.34 cm) vc1 02:56 Pain Scale: Adult vc1 ED Course: 02:45 Patient arrived in ED. jj6 02:52 Chris Almanzar MD is Attending Physician. sp4 02:54 Liberty Mckeon RN is Primary Nurse. kj2 02:58 Triage completed. vc1 02:58 Arm band placed on left wrist. vc1 02:58 Patient has correct armband on for positive identification. Bed in low position. Call vc1 light in reach. Pulse ox on. NIBP on. 03:01 Provided Education on: call light. vc1 05:19 No provider procedures requiring assistance completed. Assist provider with laceration kj2 repair Set up tray. Dressed with Kerlix, Patient tolerated well. 05:31 Patient did not have IV access during this emergency room visit. kj2 Administered Medications: 03:20 Drug: Trimethoprim-Sulfamethoxazole PO (160 mg-800 mg (DS) 1 tablet PO once Route: PO; kj2 05:11 Follow up: Response: No adverse reaction kj2 03:20 Drug: Cephalexin PO 500 mg PO once Route: PO; kj2 05:11 Follow up: Response: No adverse reaction kj2 03:20 Drug: Ondansetron PO 4 mg PO once Route: PO; kj2 05:10 Follow up: Response: No adverse reaction kj2 03:21 Drug: Ibuprofen PO 800 mg PO once Route: PO; kj2 03:45 Follow up: Response: No adverse reaction kj2 05:11 Drug: Lidocaine Infiltration (1 %) 20 ml 20 ml Infiltration once; to bedside Volume: 20 kj2 ml; Route: Infiltration; 05:17 Drug: traMADol PO 100 mg PO once Route: PO; kj2 05:18 Follow up: Response: No adverse reaction; Medication administered at discharge. kj2 Medication: 03:01 VIS not applicable for this client. vc1 Point of Care Testing: Blood Glucose: 05:13 Blood Glucose: 108 mg/dL; cp4 Ranges: Outcome: 05:08 Discharge ordered by . sky 05:19 Condition: stable kj2 05:19 Discharge instructions given to patient, Instructed on discharge instructions, follow up and referral plans. medication usage, Demonstrated understanding of instructions, follow-up care, medications, Prescriptions given X 4, 05:21 Discharged to home ambulatory, kj2 05:31 Patient left the ED. kj2 Signatures: Marisel Crisostomoj6 Ryann Baig RN RN vc1 Chris Almanzar MD MD sp4 Veronica Guadarrama cp4 Liberty Mckeon RN RN kj2 Corrections: (The following items were deleted from the chart) 05:31 05:19 IV discontinued, intact, bleeding controlled, No redness/swelling at site. kj2 Pressure dressing applied, kj2
--- NOTE | 2024-04-30 05:09 | EDPHYS ---
Physician Documentation [facility] Name: Sathish Klein Age: 64 yrs Sex: Male : 1960 Arrival Date: 04/30/2024 Time: 02:42 Bed 5 Private MD: ED Physician Chris Almanzar HPI: 04/30 05:02 This 64 yrs old Male presents to ER via Ambulatory with complaints of Finger sp4 Injury. 05:21 64 year old male presents with moderate to severe pain and swelling of the right index sp4 finger that is red tender and painful. . Historical: - Allergies: 02:58 No Known Allergies; vc1 - Home Meds: 02:58 None [Active]; vc1 - PMHx: 02:58 None; vc1 - PSHx: 02:58 None; vc1 - Immunization history:: Client reports receiving the 2nd dose of the Covid vaccine, Last tetanus immunization: < 5 years ago. - Infectious Disease History:: Denies. - Social history:: Smoking status: Patient denies any tobacco usage or history of. - Family history:: not pertinent. ROS: 05:21 Constitutional: Negative for fever, chills, and weight loss, Positive right index sp4 finger pain, swelling , tenderness, redness 05:21 All other systems are negative, Exam: 05:21 Constitutional: This is a well developed, well nourished patient who is awake, alert, sp4 and in no acute distress. Head/Face: Normocephalic, atraumatic. Eyes: Pupils equal round and reactive to light, extra-ocular motions intact. Lids and lashes normal. Conjunctiva and sclera are not injected. Cornea within normal limits. Periorbital areas with no swelling, redness, or edema. ENT: Nares patent. No nasal discharge, no septal abnormalities noted. Tympanic membranes are normal and external auditory canals are clear. Oropharynx with no redness, swelling, or masses, exudates, or evidence of obstruction, uvula midline. Mucous membranes moist. Neck: Trachea midline, no thyromegaly or masses palpated, and no cervical lymphadenopathy. Supple, full range of motion without nuchal rigidity, or vertebral point tenderness. Chest/axilla: Normal chest wall appearance and motion. Nontender with no deformity. No lesions are appreciated. Cardiovascular: Regular rate and rhythm with a normal S1 and S2. No gallops, murmurs, or rubs. Normal PMI, no JVD. No pulse deficits. Respiratory: Lungs have equal breath sounds bilaterally, clear to auscultation and percussion. No rales, rhonchi or wheezes noted. No increased work of breathing, no retractions or nasal flaring. Abdomen/GI: Soft, with normal bowel sounds. No distension or tympany. No guarding or rebound. No evidence of tenderness throughout. Back: No spinal tenderness. No costovertebral tenderness. Skin: Warm, dry with normal turgor. Normal color with no rashes, no lesions, and no evidence of cellulitis. MS/ Extremity: Pulses equal, no cyanosis. Neurovascular intact. Full, normal range of motion. Positive Right index finfer distal finger moderate paronychia . Neuro: Awake and alert, GCS 15, oriented to person, place, time, and situation. Cranial nerves II-XII grossly intact. Motor strength 5/5 in all extremities. Sensory grossly intact. Psych: Awake, alert, with orientation to person, place and time. Behavior, mood, and affect are within normal limits Vital Signs: 02:56 BP 158 / 68; Pulse 50; Resp 14; Temp 98.6; Pulse Ox 99% ; Weight 83.91 kg; Height 5 ft. vc1 11 in. ; Pain 10/10; 03:23 BP 151 / 82; Pulse 45; Resp 18; Pulse Ox 98% on R/A; kj2 04:36 BP 153 / 104; Pulse 50; Resp 18; Pulse Ox 97% on R/A; kj2 05:22 BP 165 / 86; Pulse 56; Resp 18; Temp 98; Pulse Ox 97% on R/A; kj2 02:56 Body Mass Index 25.80 (83.91 kg, 180.34 cm) vc1 02:56 Pain Scale: Adult vc1 Procedures: 05:02 I \T\ D: Incision and drainage was performed for an abscess of the right dorsal aspect of sp4 distal phalanx of right index finger and right index fingernail - Right index finger paronychia Prepped with Betadine, alcohol, Anesthetized with 6 ml's 1% Lidocaine. Digital block . Incised with #11 blade. Drained moderate amount purulent fluid. bloody fluid. Dressing: sterile 4x4 gauze, Kerlix the patient tolerated the procedure well, Successful Incision and Drainage . MDM: 02:56 Medical Screening Exam initiated sp4 06:33 ED course: XR HAND 3 OR MORE VIEWS RIGHT INDICATION: Pain COMPARISON: None TECHNIQUE: 2 sp4 views of the right hand FINDINGS: BONES: No acute fracture or malalignment. No suspicious sclerotic or lytic lesion. SOFT TISSUE: Unremarkable. OTHER: None. IMPRESSION: No acute bony abnormality. . 06:33 Differential diagnosis: extremity fracture, Finger puncture. Data reviewed: vital sp4 signs, nurses notes, lab test result(s). ED course: Patient states his last tetanus booster was in 2022.. 04/30 05:25 Order name: Glucose, Ancillary Testing; Complete Time: 06:34 EDMS 04/30 02:54 Order name: Dressing - Wound; Complete Time: 05:13 sp4 04/30 02:54 Order name: Gloves, Sterile; Complete Time: 05:13 sp4 04/30 02:54 Order name: Setup Suture Tray; Complete Time: 04:23 sp4 04/30 05:10 Order name: Accucheck Blood Glucose; Complete Time: 05:13 sp4 Administered Medications: 03:20 Drug: Trimethoprim-Sulfamethoxazole PO (160 mg-800 mg (DS) 1 tablet PO once Route: PO; kj2 05:11 Follow up: Response: No adverse reaction kj2 03:20 Drug: Cephalexin PO 500 mg PO once Route: PO; kj2 05:11 Follow up: Response: No adverse reaction kj2 03:20 Drug: Ondansetron PO 4 mg PO once Route: PO; kj2 05:10 Follow up: Response: No adverse reaction kj2 03:21 Drug: Ibuprofen PO 800 mg PO once Route: PO; kj2 03:45 Follow up: Response: No adverse reaction kj2 05:11 Drug: Lidocaine Infiltration (1 %) 20 ml 20 ml Infiltration once; to bedside Volume: 20 kj2 ml; Route: Infiltration; 05:17 Drug: traMADol PO 100 mg PO once Route: PO; kj2 05:18 Follow up: Response: No adverse reaction; Medication administered at discharge. kj2 Point of Care Testing: Blood Glucose: 05:13 Blood Glucose: 108 mg/dL; cp4 Ranges: Critical Glucose Levels:Adult <50 mg/dl or >400 mg/dl <40 mg/dl or >180 mg/dl Disposition Summary: 04/30/24 05:08 Discharge Ordered Notes: Location: Home sp4 Problem: new sp4 Symptoms: have improved sp4 Condition: Stable sp4 Diagnosis - Right index finger paronychia sp4 Followup: sp4 - With: Private Physician - When: 7 - 10 days - Reason: Recheck today's complaints Discharge Instructions: - Discharge Summary Sheet sp4 - Paronychia, [id number] sp4 Forms: - Patient Portal Instructions sp4 Prescriptions: - Cephalexin 500 mg Oral Capsule - take 1 capsule ORAL route every 12 hours for 10 days; 20 capsule; Refills: 0, sp4 Product Selection Permitted - Ibuprofen 800 mg Oral Tablet - take 1 tablet ORAL route every 8 hours As needed take with food; 30 tablet; sp4 Refills: 0, Product Selection Permitted - Tramadol 50 mg Oral tablet - take 1 tablet ORAL route every 8 hours as needed; 20 tablet; Refills: 0, sp4 Product Selection Permitted - Bactrim DS 800-160 mg Oral Tablet - take 1 tablet ORAL route every 12 hours for 10 days; 20 tablet; Refills: 0, sp4 Product Selection Permitted Signatures: Dispatcher [employer] Ryann Hu RN RN vc1 Chris Almanzar MD MD sp4 Liberty Mckeon RN RN kj2
[2024-04-30] MEDS ORDERED: TRAMADOL HCL 50 MG TAB ONE (05:14)
--- NOTE | 2024-04-30 06:05 | RAD REPORT ---
XR HAND 3 OR MORE VIEWS RIGHT INDICATION: Pain COMPARISON: None TECHNIQUE: 2 views of the right hand FINDINGS: BONES: No acute fracture or malalignment. No suspicious sclerotic or lytic lesion. SOFT TISSUE: Unremarkable. OTHER: None. IMPRESSION: No acute bony abnormality. Electronically signed by: Jesica Sheridan MD 04/30/2024 05:51 AM CDT RP Due to temporary technical issues with the PACS/[employer] reporting system, reports are being cristina d by the in-house radiologist without review as a courtesy to ensure prompt reporting the interpreting radiologist is fully responsible for the content of the report. Transcribed Date/Time: 04/30/2024 6:05 AM
[2024-04-30 13:51] VITALS: O2SAT 97
[2024-04-30 13:52] VITALS: BP 165/86; TEMP 98
== END 2024-04-30 05:31 | disposition home or self-care (01) ==
LOC: ER 02:42
PROC: 0H9FXZZ Drainage of Right Hand Skin, External Approach (ICD-10-PCS; principal; 2024-04-30)
DX: L03.011 Cellulitis of right finger (principal)
CPT/HCPCS: 82947; 99284; J2003; Q0162